=== PATIENT | male | born 1935 ===

== ENCOUNTER 2017-07-22 08:58 | Observation (INO) | payer OTHER ==
[2017-07-20 12:46] VITALS: BMI 19.7
[2017-07-22] MEDS ORDERED: Propofol 10 mg/ml Inj (20 ML) ONE (10:46)
[2017-07-22] MEDS ORDERED: Lidocaine 2% Inj (20ml) ONE (11:16)
--- NOTE | 2017-07-22 11:48 | CP.SDSHP ---
Same Day Surgery H & P - History Proposed Procedure: CT guided right lung mass biopsy Pre-Op Diagnosis: Right lung mass - Allergies Allergies: Allergies No Known Allergies Allergy (Verified 09/04/15 18:09) - Physical Exam Mental Status: Alert & Oriented x3 Neuro: WNL Heart: WNL Lungs: WNL - Impression Impression: pt with right lung mass referred for CT guided biopsy. Plan CT guided biopsy. Informed consent obtained and risk of PTX requiring chest tube explained to Pt and son. Pt. Evaluated Today:Candidate for Anesthesia & Procedure: Yes (ASA 3 Malampati 2) - Date & Time Date: 07/22/17 Time: 11:10 Short Stay Discharge - Short Stay Discharge Admitting Diagnosis/Reason for Visit: CT GUIDED LUNG BIOPSY Disposition: HOME/ ROUTINE
--- NOTE | 2017-07-22 11:49 | PCM.SURG1 ---
Surgeon's Initial Post Op Note - Surgeon's Notes Surgeon: Artem Tucker MD Straw Hat Brusher: NONE Type of Anesthesia: IV Sedation Pre-Operative Diagnosis: Right lung mass Operative Findings: CT showed a right lung peripheral consolidation measuring 3 cm with hazy borders. Post-Operative Diagnosis: Right lung mass Operation Performed: CT guided right lung mass biopsy Specimen/Specimens Removed: 20 g x 3 Estimated Blood Loss: EBL {In ML}: 0 Blood Products Given: N/A Drains Used: No Drains Post-Op Condition: Fair Date of Surgery/Procedure: 07/22/17 Time of Surgery/Procedure: 11:35
--- NOTE | 2017-07-22 11:54 | CT ---
PROCEDURE: Date of procedure: Procedure: 1. CT-guided lung mass biopsy, CPT [address] Guidance for biopsy, [address] Medications: The patient was sedated by anesthesiologist along with physiologic monitoring. HISTORY: Right upper lobe lung nodule TECHNIQUE: Following informed consent, the Pt's chest was marked. The Pt was placed prone on the CT table and procedure time out was performed. A noncontrast CT scan was performed. Noncontrast CT scan confirmed the presence of a peripheral 2.5cm area of consolidation. A skin localizer was placed on the patient's right chest and a repeat CT scan was performed. The skin was marked, prepped, and draped in the usual sterile fashion. After the skin was anesthetized with lidocaine and the patient sedated by the anesthesiologist, a 20 gauge core needle was advanced percutaneously under direct CT guidance into the mass. The patient developed pneumothorax and subcutaneous emphysema. A 2nd 20 gauge needle was then advanced under CT guidance into the mass. Upon confirmation of needle position, two 20-gauge core specimens were obtained and sent for routine pathology. The pneumothorax was aspirated. The needle was removed and a xeroform dressing was applied. A post biopsy CT scan showed decreased size of the pneumothorax measuring less than 10 percent. Large subcutaneous emphysema is present. IMPRESSION: CT guided core biopsy right lung nodule. A small pneumothorax is present following biopsy along with a a right subcutaneous emphysema. Patient also saturations 98 percent on 1 liter. Planned repeat chest x-ray in 1 hour.
--- NOTE | 2017-07-22 13:53 | RAD ---
PROCEDURE: CHEST RADIOGRAPH, 1 VIEW HISTORY: Status post right lung biopsy COMPARISON: None available. FINDINGS: LUNGS: Patchy opacity in the right midlung consistent with known lung mass. PLEURA: Increased size of right pneumothorax now approximately 20 percent. CARDIOVASCULAR: Normal. OSSEOUS STRUCTURES: No significant abnormalities. VISUALIZED UPPER ABDOMEN: Normal. OTHER FINDINGS: Significant subcutaneous emphysema extending from the lower chest into the neck. IMPRESSION: Increased size of right pneumothorax. Increased subcutaneous emphysema.
--- NOTE | 2017-07-22 13:56 | CT ---
PROCEDURE: Date of procedure: 07/22/2017 Procedure: 1. Placement of a right chest tube CT Guidance Medications: 8cc 1 percent lidocaine, HISTORY: Expanding Right pneumothorax TECHNIQUE: Following informed consent and procedure time-out, the patient's right chest was marked, prepped and draped in the usual sterile fashion. Noncontrast CT was performed. Noncontrast disease showed increased size of pneumothorax compared to post biopsy CT scan. After the skin was anesthetized with 1% lidocaine, a [place] catheter was advanced under ultrasound guidance into the pleural space. The catheter was exchanged over an 035 guidewire and tract was dilated to accommodate a 8 [place] pigtail catheter formed within the pleural space. The catheter was attached to a Pleur-Evac and attached to wall suction. A repeat CT scan showed no residual pneumothorax. The catheter was secured to patient's skin. A dressing applied. IMPRESSION: Placement of an 8 [place] right pigtail catheter for pneumothorax. There were no immediate complications.
[2017-07-22] MEDS: Albuterol-Ipratrop 3 mg / 0.5 (3 ml) UD INH SCH ×2 (14:30→20:21)
[2017-07-22] MEDS: HYDROmorphone 0.5 mg/0.5 ml ISec IVP PRN ×2 (15:19→21:29)
--- NOTE | 2017-07-22 17:33 | CP.PCM.CON ---
History of Present Illness - History of Present Illness History of Present Illness: Patient is an 81 y.o M with PMH of COPD, GERD and influenza currently on Tamiflu who underwent CT guided lung nodule biopsy. Post biopsy, patient developed small right-sided pneumothorax and subcutaneous emphysema. S/P 8 Nepali pigtail catheter for pneumothorax. Patient is currently complaining of severe right sided chest pain as well as right neck pain. Patient denies any shortness of breath. Patient has no other complaints. Patient has extensive smoking history and quit 10 years ago. He has had chronic non-productive cough for several years. PMD: Dr. Megan Vazquez Medications: Prilosec, Vitamin D, Iron tablets Surgical Hx: Bronchoscopy for foreign body removal in [facility] on 07/13/15; 3 hernia repairs (2008, 1997, ) Social Hx: former smoker for 30+ years, quit in 2005, lives with son, denies illicit drug use Allergies: no known allergies Assessment and Plan: Patient is an 81 y.o M with PMH of COPD, GERD and recent URI (finished treatment course yesterday) who underwent CT guided lung nodule biopsy. Post biopsy, patient developed small right-sided pneumothorax and subcutaneous emphysema. S/P 8 Nepali pigtail catheter for pneumothorax. -Duoneb treatment -Dilaudid for pain control -Follow up biopsy results -Tamiflu -Monitor vitals -Afebrile -Chest tube care Past Patient History - Infectious Disease Hx of Infectious Diseases: None - Past Medical History & Family History Past Medical History?: Yes - Past Social History Smoking Status: Former Smoker - CARDIAC Hx Cardiac Disorders: No - PULMONARY Other/Comment: BRONCOSCOPY - NEUROLOGICAL Hx Neurological Disorder: No - HEENT Hx HEENT Problems: No - RENAL Hx Chronic Kidney Disease: No - ENDOCRINE/METABOLIC Hx Endocrine Disorders: No - HEMATOLOGICAL/ONCOLOGICAL Hx Blood Disorders: No - INTEGUMENTARY Hx Dermatological Problems: No - MUSCULOSKELETAL/RHEUMATOLOGICAL Hx Musculoskeletal Disorders: No - GASTROINTESTINAL Hx Gastrointestinal Disorders: No - GENITOURINARY/GYNECOLOGICAL Hx Genitourinary Disorders: No - PSYCHIATRIC Hx Psychophysiologic Disorder: No Hx Substance Use: No - SURGICAL HISTORY Hx Surgeries: No - ANESTHESIA Hx Anesthesia: Yes Hx Anesthesia Reactions: No Hx Malignant Hyperthermia: No Has any member of the family had a problem w/ anesthesia?: No Meds Allergies/Adverse Reactions: Allergies Allergy/AdvReac Type Severity Reaction Status Date / Time No Known Allergies Allergy Verified 09/04/15 18:09 - Medications Medications: Current Medications Albuterol/Ipratropium (Duoneb 3 Mg/0.5 Mg (3 Ml) Ud) 3 ml INH RQ6 [facility] Last Admin: 07/22/17 14:30 Dose: 3 ml Heparin Sodium (Porcine) (Heparin) 5,000 units SC Q12 [facility] Hydromorphone HCl (Dilaudid) 0.5 mg IVP Q6H PRN PRN Reason: Pain, moderate (4-7) Last Admin: 07/22/17 15:19 Dose: 0.5 mg Oseltamivir Phosphate (Tamiflu Cap) 75 mg PO DAILY [facility] Pantoprazole Sodium (Protonix Ec Tab) 40 mg PO DAILY [facility] Results - Vital Signs Recent Vital Signs: Last Vital Signs Temp 97.3 F L 07/22/17 13:45 Pulse 89 07/22/17 14:30 Resp 24 07/22/17 14:30 BP 152/74 H 07/22/17 14:30 Pulse Ox 100 07/22/17 14:30
[2017-07-22] MEDS ORDERED: Albuterol HFA 90 mcg/actuation (8 g) IH PRN (18:59)
--- NOTE | 2017-07-22 19:23 | CP.PCM.HP ---
Past Patient History - Infectious Disease Hx of Infectious Diseases: None - Past Medical History & Family History Past Medical History?: Yes - Past Social History Smoking Status: Former Smoker - CARDIAC Hx Cardiac Disorders: No - PULMONARY Other/Comment: BRONCOSCOPY - NEUROLOGICAL Hx Neurological Disorder: No - HEENT Hx HEENT Problems: No - RENAL Hx Chronic Kidney Disease: No - ENDOCRINE/METABOLIC Hx Endocrine Disorders: No - HEMATOLOGICAL/ONCOLOGICAL Hx Blood Disorders: No - INTEGUMENTARY Hx Dermatological Problems: No - MUSCULOSKELETAL/RHEUMATOLOGICAL Hx Musculoskeletal Disorders: No - GASTROINTESTINAL Hx Gastrointestinal Disorders: No - GENITOURINARY/GYNECOLOGICAL Hx Genitourinary Disorders: No - PSYCHIATRIC Hx Psychophysiologic Disorder: No Hx Substance Use: No - SURGICAL HISTORY Hx Surgeries: No - ANESTHESIA Hx Anesthesia: Yes Hx Anesthesia Reactions: No Hx Malignant Hyperthermia: No Has any member of the family had a problem w/ anesthesia?: No Meds Allergies/Adverse Reactions: Allergies Allergy/AdvReac Type Severity Reaction Status Date / Time No Known Allergies Allergy Verified 09/04/15 18:09 Results - Vital Signs Recent Vital Signs: Last Vital Signs Temp 98.5 F 07/22/17 17:00 Pulse 91 H 07/22/17 17:00 Resp 20 07/22/17 17:00 BP 123/64 07/22/17 17:00 Pulse Ox 95 07/22/17 17:00
[2017-07-22 19:58] LABS: BASO % 0.1 % (0.0-2.0); EOS % 0.1 % (0.0-4.0); HEMOGLOBIN 10.3 g/dL (12.0-18.0); LYMPH # 1.2 K/uL (1.0-4.3); LYMPH % 7.3 % (20.0-40.0); MEAN CELL VOLUME 70.3 fL (80.0-94.0); MEAN CORPUSCULAR HGB CONC 31.3 g/dL (33.0-37.0); MEAN PLATELET VOLUME 7.5 fL (7.2-11.7); MONO # 0.7 K/uL (0.0-0.8); MONO % 4.5 % (0.0-10.0); NEUT # 14.5 K/uL (1.8-7.0); PLATELET COUNT 480 K/uL (130-400); RBC 4.69 Mil/uL (4.40-5.90); RED CELL DISTRIBUTION WIDTH 20.1 % (11.5-14.5); WHITE BLOOD COUNT 16.5 K/uL (4.8-10.8)
[2017-07-22 20:14] LABS: ALB/GLOB RATIO 1.1 (1.0-2.1); ALBUMIN 3.6 g/dL (3.5-5.0); ALT/SGPT 15 U/L (21-72); AST/SGOT 23 U/L (17-59); BLOOD UREA NITROGEN 15 mg/dL (9-20); CALCIUM 8.9 mg/dl (8.6-10.4); GFR AFRICAN-AMERICAN > 60; GFR NON-AFRICAN AMERICAN > 60
[2017-07-22 22:01] LABS: LYMPHOCYTE 6 % (20-40); MONOCYTE 4 % (0-10); TOTAL CELLS COUNTED 100
[2017-07-22 22:02] LABS: BANDS 10 % (0-2); HYPOCHROMIC SLIGHT; NEUTROPHIL 80 % (50-75); OVALOCYTES SLIGHT; PLATELET ESTIMATE NORMAL (NORMAL)
[2017-07-22 22:03] LABS: HYPERSEGMENTATION PRESENT
[2017-07-22] MEDS: Benzocaine/Menthol (Cepacol) Lozenge MT PRN (22:59)
[2017-07-22] MEDS: Azithromycin 500mg/250ML NS 500 MG/250 ML BAG IVPB SCH (23:01)
[2017-07-23] MEDS: Albuterol-Ipratrop 3 mg / 0.5 (3 ml) UD INH SCH ×4 (01:24→19:44)
[2017-07-23] MEDS: HYDROmorphone 0.5 mg/0.5 ml ISec IVP PRN ×3 (03:44→17:47)
[2017-07-23] MEDS: Tiotropium 18 mcg Cap For Inhalation INH SCH (07:57)
[2017-07-23] MEDS: Benzocaine/Menthol (Cepacol) Lozenge MT PRN (08:00)
--- NOTE | 2017-07-23 08:52 | RAD ---
Chest x-ray single frontal view History: Pneumothorax. Comparison: 07/22/2017 Findings: Extensive subcutaneous air seen throughout the right jud thorax and flank soft tissues extending into the right arm. Right chest tube in place. Tiny right apical pneumothorax. Venous congestion. Consolidative changes at the right lung base medially. Right peritracheal consolidation. Degenerative changes spine and shoulders. Impression: Extensive subcutaneous air seen throughout the right jud thorax and flank soft tissues extending into the right arm. Right chest tube in place. Tiny right apical pneumothorax. Venous congestion. Consolidative changes at the right lung base medially. Right peritracheal consolidation.
[2017-07-23] MEDS: Pantoprazole 40 mg EC Tab PO SCH (09:30)
[2017-07-23] MEDS ORDERED: Pneumococcal 23-Valent Vaccine IM ONE (10:00)
--- NOTE | 2017-07-23 13:54 | PCM.IRP ---
History of Present Illness - History of Present Illness History of Present Illness: Pt with post lung biopsy PTX s/p pigtail drainage catheter. CXR reviewed and shows small persistent PTX. Plan chest tube removal once the PTX is completely resolved. Objective - Vital Signs/Intake and Output Vital Signs (last 24 hours): Vital Signs - 24 hr 07/22/17 07/22/17 07/22/17 14:00 14:15 14:30 Temperature Pulse Rate 96 H 95 H 89 Respiratory 23 21 24 Rate Blood Pressure 150/83 156/77 H 152/74 H O2 Sat by Pulse 100 100 100 Oximetry 07/22/17 07/22/17 07/22/17 15:30 16:30 17:00 Temperature 97.4 F L 98.5 F Pulse Rate 88 88 91 H Respiratory 33 H 17 20 Rate Blood Pressure 143/75 136/64 123/64 O2 Sat by Pulse 100 96 95 Oximetry 07/22/17 07/22/17 07/22/17 21:00 21:15 23:25 Temperature 98.1 F 98.4 F Pulse Rate 99 H 89 Respiratory 20 20 Rate Blood Pressure 126/67 128/59 L O2 Sat by Pulse 97 97 96 Oximetry 07/23/17 07/23/17 07/23/17 03:45 07:40 08:35 Temperature 97.4 F L 98.1 F Pulse Rate 79 91 H 96 H Respiratory 20 20 Rate Blood Pressure 135/72 114/67 O2 Sat by Pulse 95 95 Oximetry Intake and Output (last 12 hours): Intake & Output 07/22/17 07/23/17 07/23/17 18:59 06:59 18:59 Intake Total 270 Output Total 450 Balance -180 Intake: Intake, IV Amount 150 Left Wrist 150 Oral 120 Output: Drainage 0 Right Chest 0 Urine 450 Urine, Voided 450 - Medications Medications: Current Medications Albuterol (Ventolin Hfa 90 Mcg/Actuation (8 G)) 2 puff IH RQ6 PRN PRN Reason: Shortness of Breath Albuterol/Ipratropium (Duoneb 3 Mg/0.5 Mg (3 Ml) Ud) 3 ml INH RQ6 [facility] Last Admin: 07/23/17 13:32 Dose: 3 ml Benzocaine/Menthol (Cepacol Sore Throat) 1 humberto MT Q6 PRN PRN Reason: Sore Throat Last Admin: 07/22/17 22:59 Dose: 1 humberto Ferrous Sulfate (Feosol) 325 mg PO DAILY [facility] Last Admin: 07/23/17 09:31 Dose: 325 mg Heparin Sodium (Porcine) (Heparin) 5,000 units SC Q12 [facility] Last Admin: 07/23/17 09:31 Dose: 5,000 units Hydromorphone HCl (Dilaudid) 0.5 mg IVP Q6H PRN PRN Reason: Pain, moderate (4-7) Last Admin: 07/23/17 10:14 Dose: 0.5 mg Ceftriaxone Sodium 1 gm/ (Sodium Chloride) 100 mls @ 100 mls/hr IVPB DAILY [facility] Last Admin: 07/22/17 22:59 Dose: 100 mls/hr Azithromycin (Zithromax 500mg In Ns Addvantage) 500 mg in 250 mls @ 167 mls/hr IVPB Q24H [facility] Last Admin: 07/22/17 23:01 Dose: 167 mls/hr Oseltamivir Phosphate (Tamiflu Cap) 75 mg PO DAILY [facility] Last Admin: 07/23/17 09:31 Dose: 75 mg Pantoprazole Sodium (Protonix Ec Tab) 40 mg PO DAILY [facility] Last Admin: 07/23/17 09:30 Dose: 40 mg Tiotropium [place] (Spiriva) 18 mcg INH RQ24 [facility] Last Admin: 07/23/17 07:57 Dose: 18 mcg - Labs Labs (last 24 hours): Laboratory Results - last 24 hr 07/22/17 07/22/17 19:08 19:56 WBC 16.5 H D RBC 4.69 Hgb 10.3 L Hct 33.0 L MCV 70.3 L MCH 22.0 L MCHC 31.3 L RDW 20.1 H Plt Count 480 H MPV 7.5 Neut % (Auto) 88.0 H Lymph % (Auto) 7.3 L [place] % (Auto) 4.5 Eos % (Auto) 0.1 Baso % (Auto) 0.1 Neut # (Auto) 14.5 H Lymph # (Auto) 1.2 [place] # (Auto) 0.7 Eos # (Auto) 0.0 Baso # (Auto) 0.0 Neutrophils % (Manual) 80 H Band Neutrophils % 10 H Lymphocytes % (Manual) 6 L Monocytes % (Manual) 4 Hypersegmented Polys Present Platelet Estimate Normal Hypochromasia (manual) Slight Ovalocytes Slight Sodium 131 L Potassium 3.9 Chloride 93 L Carbon Dioxide 30 Anion Gap 12 BUN 15 Creatinine 0.7 L Est GFR ( Amer) > 60 Est GFR (Non-Af Amer) > 60 Random Glucose 125 H Calcium 8.9 Total Bilirubin 0.7 AST 23 ALT 15 L D Alkaline Phosphatase 63 Total Protein 7.0 Albumin 3.6 Globulin 3.3 Albumin/Globulin Ratio 1.1
--- NOTE | 2017-07-23 13:57 | RAD ---
HISTORY: OFF SUCTION DX: PNEUMOTHORAX COMPARISON: 07/23/2017 at 7:57 a.m. FINDINGS: LUNGS: No pulmonary infiltrate. Very small right apical pneumothorax as on prior examination of the same date. Extensive subcutaneous emphysema seen over the right lateral chest wall and circumferentially about the neck. . PLEURA: As above. No pleural effusion. Right pigtail pleural catheter noted. CARDIOVASCULAR: Normal. OSSEOUS STRUCTURES: No significant abnormalities. VISUALIZED UPPER ABDOMEN: Normal. OTHER FINDINGS: None. IMPRESSION: Very small right apical pneumothorax. Subcutaneous emphysema.
[2017-07-23] MEDS ORDERED: Aluminum Hydroxide/Magnesium Hydroxide Susp (30 mL) PO PRN (16:22)
--- NOTE | 2017-07-23 17:18 | CP.PCM.PN ---
Subjective - Date & Time of Evaluation Date of Evaluation: 07/23/17 Time of Evaluation: 15:00 - Subjective Subjective: pt clinically same Objective - Vital Signs/Intake and Output Vital Signs (last 24 hours): Temp Pulse Resp BP Pulse Ox 97.8 F 93 H 18 136/67 96 07/23/17 16:00 07/23/17 16:00 07/23/17 16:00 07/23/17 16:00 07/23/17 16:03 Intake and Output: 07/23/17 07/23/17 06:59 18:59 Intake Total 270 Output Total 450 Balance -180 - Medications Medications: Current Medications Al Hydrox/Mg Hydrox/Simethicone (Maalox 30 Ml) 30 ml PO Q6 PRN PRN Reason: Indigestion / Heartburn Albuterol (Ventolin Hfa 90 Mcg/Actuation (8 G)) 2 puff IH RQ6 PRN PRN Reason: Shortness of Breath Albuterol/Ipratropium (Duoneb 3 Mg/0.5 Mg (3 Ml) Ud) 3 ml INH RQ6 [facility] Last Admin: 07/23/17 13:32 Dose: 3 ml Benzocaine/Menthol (Cepacol Sore Throat) 1 humberto MT Q6 PRN PRN Reason: Sore Throat Last Admin: 07/23/17 08:00 Dose: 1 humberto Ferrous Sulfate (Feosol) 325 mg PO DAILY [facility] Last Admin: 07/23/17 09:31 Dose: 325 mg Heparin Sodium (Porcine) (Heparin) 5,000 units SC Q12 [facility] Last Admin: 07/23/17 09:31 Dose: 5,000 units Hydromorphone HCl (Dilaudid) 0.5 mg IVP Q6H PRN PRN Reason: Pain, moderate (4-7) Last Admin: 07/23/17 10:14 Dose: 0.5 mg Ceftriaxone Sodium 1 gm/ (Sodium Chloride) 100 mls @ 100 mls/hr IVPB DAILY [facility] Last Admin: 07/23/17 10:00 Dose: 100 mls/hr Azithromycin (Zithromax 500mg In Ns Addvantage) 500 mg in 250 mls @ 167 mls/hr IVPB Q24H [facility] Last Admin: 07/22/17 23:01 Dose: 167 mls/hr Oseltamivir Phosphate (Tamiflu Cap) 75 mg PO DAILY [facility] Last Admin: 07/23/17 09:31 Dose: 75 mg Pantoprazole Sodium (Protonix Ec Tab) 40 mg PO DAILY [facility] Last Admin: 07/23/17 09:30 Dose: 40 mg Tiotropium [place] (Spiriva) 18 mcg INH RQ24 [facility] Last Admin: 07/23/17 07:57 Dose: 18 mcg - Labs Labs: 07/22/17 19:08 07/22/17 19:56 - Constitutional Appears: No Acute Distress - Head Exam Head Exam: ATRAUMATIC, NORMAL INSPECTION, NORMOCEPHALIC - Eye Exam Eye Exam: EOMI, Normal appearance, PERRL Pupil Exam: NORMAL ACCOMODATION, PERRL - ENT Exam ENT Exam: Mucous Membranes Moist - Neck Exam Neck Exam: Full ROM - Respiratory Exam Respiratory Exam: Decreased Breath Sounds - Cardiovascular Exam Cardiovascular Exam: REGULAR RHYTHM, +S1, +S2 - GI/Abdominal Exam GI & Abdominal Exam: Soft, Diminished Bowel Sounds - Rectal Exam Rectal Exam: Deferred - Neurological Exam 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
--- NOTE | 2017-07-23 19:41 | CP.PCM.PN ---
Subjective - Date & Time of Evaluation Date of Evaluation: 07/23/17 Time of Evaluation: 12:25 - Subjective Subjective: Patient was seen and evaluated. He continues to complain of right sided chest pain, for which Dilaudid provides relief. He denies any shortness of breath or cough. Assessment and Plan: Patient is an 81 y.o M with PMH of COPD, GERD and recent URI (finished treatment course yesterday) who underwent CT guided lung nodule biopsy. Post biopsy, patient developed small right-sided pneumothorax and subcutaneous emphysema. S/P 8 [place] pigtail catheter for pneumothorax. -Keep off suction for 1 hour and Repeat CXR -CXR on 07/23 showed extensive subcutaneous air throughout the right jud thorax and flank soft tissues extending into the right arm, tiny right apical pneumothorax, venous congestion, consolidative changes at the right lung base medially, right peritracheal consolidation -Duoneb treatments -Dilaudid for pain control -Follow up biopsy results -Tamiflu -Monitor vitals -Afebrile -Chest tube care -WBC 16.5, IV abx Objective - Vital Signs/Intake and Output Vital Signs (last 24 hours): Temp Pulse Resp BP Pulse Ox 97.8 F 93 H 18 136/67 96 07/23/17 16:00 07/23/17 16:00 07/23/17 16:00 07/23/17 16:00 07/23/17 16:03 - Medications Medications: Current Medications Al Hydrox/Mg Hydrox/Simethicone (Maalox 30 Ml) 30 ml PO Q6 PRN PRN Reason: Indigestion / Heartburn Last Admin: 07/23/17 17:30 Dose: 30 ml Albuterol (Ventolin Hfa 90 Mcg/Actuation (8 G)) 2 puff IH RQ6 PRN PRN Reason: Shortness of Breath Albuterol/Ipratropium (Duoneb 3 Mg/0.5 Mg (3 Ml) Ud) 3 ml INH RQ6 [facility] Last Admin: 07/23/17 13:32 Dose: 3 ml Benzocaine/Menthol (Cepacol Sore Throat) 1 humberto MT Q6 PRN PRN Reason: Sore Throat Last Admin: 07/23/17 08:00 Dose: 1 humberto Ferrous Sulfate (Feosol) 325 mg PO DAILY [facility] Last Admin: 07/23/17 09:31 Dose: 325 mg Heparin Sodium (Porcine) (Heparin) 5,000 units SC Q12 [facility] Last Admin: 07/23/17 09:31 Dose: 5,000 units Hydromorphone HCl (Dilaudid) 0.5 mg IVP Q6H PRN PRN Reason: Pain, moderate (4-7) Last Admin: 07/23/17 17:47 Dose: 0.5 mg Ceftriaxone Sodium 1 gm/ (Sodium Chloride) 100 mls @ 100 mls/hr IVPB DAILY [facility] Last Admin: 07/23/17 10:00 Dose: 100 mls/hr Azithromycin (Zithromax 500mg In Ns Addvantage) 500 mg in 250 mls @ 167 mls/hr IVPB Q24H [facility] Last Admin: 07/22/17 23:01 Dose: 167 mls/hr Oseltamivir Phosphate (Tamiflu Cap) 75 mg PO DAILY [facility] Last Admin: 07/23/17 09:31 Dose: 75 mg Pantoprazole Sodium (Protonix Ec Tab) 40 mg PO DAILY [facility] Last Admin: 07/23/17 09:30 Dose: 40 mg Tiotropium [place] (Spiriva) 18 mcg INH RQ24 [facility] Last Admin: 07/23/17 07:57 Dose: 18 mcg - Labs Labs: 07/22/17 19:08 07/22/17 19:56
[2017-07-23] MEDS: Azithromycin 500mg/250ML NS 500 MG/250 ML BAG IVPB SCH (21:54)
[2017-07-24 01:13] VITALS: RESP 20
[2017-07-24] MEDS: HYDROmorphone 0.5 mg/0.5 ml ISec IVP PRN (04:40)
[2017-07-24 05:34] VITALS: BP 129/66; PULSE 93; TEMP 98.2; O2SAT 94
[2017-07-24 08:10] LABS: BASO % 0.2 % (0.0-2.0); EOS % 0.5 % (0.0-4.0); HEMOGLOBIN 9.8 g/dL (12.0-18.0); LYMPH # 2.3 K/uL (1.0-4.3); LYMPH % 22.8 % (20.0-40.0); MEAN CELL VOLUME 71.9 fL (80.0-94.0); MEAN CORPUSCULAR HEMOGLOBIN 23.4 pg (27.0-31.0); MEAN CORPUSCULAR HGB CONC 32.6 g/dL (33.0-37.0); MONO # 0.6 K/uL (0.0-0.8); MONO % 5.8 % (0.0-10.0); NEUT # 7.1 K/uL (1.8-7.0); NEUT % 70.7 % (50.0-75.0); RBC 4.2 Mil/uL (4.40-5.90); RED CELL DISTRIBUTION WIDTH 23.7 % (11.5-14.5); WHITE BLOOD COUNT 10.1 K/uL (4.8-10.8)
[2017-07-24] MEDS: Tiotropium 18 mcg Cap For Inhalation INH SCH (08:14)
[2017-07-24] MEDS: Albuterol-Ipratrop 3 mg / 0.5 (3 ml) UD INH SCH ×2 (08:14→13:10)
[2017-07-24 08:28] LABS: BLOOD UREA NITROGEN 11 mg/dL (9-20); CALCIUM 8.3 mg/dl (8.6-10.4); GFR AFRICAN-AMERICAN > 60; GFR NON-AFRICAN AMERICAN > 60
[2017-07-24] MEDS: Pantoprazole 40 mg EC Tab PO SCH (09:04)
[2017-07-24] MEDS: Benzocaine/Menthol (Cepacol) Lozenge MT PRN (09:04)
--- NOTE | 2017-07-24 12:00 | RAD ---
HISTORY: s/p pneumothorax COMPARISON: 07/23/2017 FINDINGS: LUNGS: There is right basilar opacity noted. Increasing opacity is seen adjacent to the right pleural pigtail catheter at the lung base. There is new opacity at the medial right lung base. Possible pneumonia. PLEURA: No pneumothorax. Right pleural pigtail catheter. No evidence of pleural effusion. There is extensive subcutaneous emphysema seen over the right lateral chest and abdominal wall and extending circumferentially about the neck. This is grossly unchanged in extent from the prior examination. CARDIOVASCULAR: Normal. OSSEOUS STRUCTURES: No significant abnormalities. VISUALIZED UPPER ABDOMEN: Normal. OTHER FINDINGS: None. IMPRESSION: Right pleural pigtail catheter. No pneumothorax. Right basilar pulmonary opacity, possible pneumonia.
--- NOTE | 2017-07-24 13:23 | CP.PCM.PN ---
Subjective - Date & Time of Evaluation Date of Evaluation: 07/24/17 Time of Evaluation: 09:45 - Subjective Subjective: patient seen and examined Lying comfortably in no acute distress Repeat chest x-ray showed reexpansion of lung Still has rescue with no air leak DC chest tube Continue present treatment Objective - Vital Signs/Intake and Output Vital Signs (last 24 hours): Temp Pulse Resp BP Pulse Ox 98.2 F 93 H 20 129/66 94 L 07/24/17 04:00 07/24/17 04:00 07/24/17 04:00 07/24/17 04:00 07/24/17 04:00 Intake and Output: 07/24/17 07/24/17 06:59 18:59 Output Total 300 Balance -300 - Medications Medications: Current Medications Al Hydrox/Mg Hydrox/Simethicone (Maalox 30 Ml) 30 ml PO Q6 PRN PRN Reason: Indigestion / Heartburn Last Admin: 07/23/17 17:30 Dose: 30 ml Albuterol (Ventolin Hfa 90 Mcg/Actuation (8 G)) 2 puff IH RQ6 PRN PRN Reason: Shortness of Breath Albuterol/Ipratropium (Duoneb 3 Mg/0.5 Mg (3 Ml) Ud) 3 ml INH RQ6 [facility] Last Admin: 07/24/17 13:10 Dose: 3 ml Benzocaine/Menthol (Cepacol Sore Throat) 1 humberto MT Q6 PRN PRN Reason: Sore Throat Last Admin: 07/24/17 09:04 Dose: 1 humberto Ferrous Sulfate (Feosol) 325 mg PO DAILY [facility] Last Admin: 07/24/17 09:04 Dose: 325 mg Heparin Sodium (Porcine) (Heparin) 5,000 units SC Q12 [facility] Last Admin: 07/24/17 09:04 Dose: 5,000 units Hydromorphone HCl (Dilaudid) 0.5 mg IVP Q6H PRN PRN Reason: Pain, moderate (4-7) Last Admin: 07/24/17 04:40 Dose: 0.5 mg Ceftriaxone Sodium 1 gm/ (Sodium Chloride) 100 mls @ 100 mls/hr IVPB DAILY [facility] Last Admin: 07/24/17 10:00 Dose: 100 mls/hr Azithromycin (Zithromax 500mg In Ns Addvantage) 500 mg in 250 mls @ 167 mls/hr IVPB Q24H [facility] Last Admin: 07/23/17 21:54 Dose: 167 mls/hr Oseltamivir Phosphate (Tamiflu Cap) 75 mg PO DAILY [facility] Last Admin: 07/24/17 09:05 Dose: 75 mg Pantoprazole Sodium (Protonix Ec Tab) 40 mg PO DAILY [facility] Last Admin: 07/24/17 09:04 Dose: 40 mg Tiotropium [place] (Spiriva) 18 mcg INH RQ24 [facility] Last Admin: 07/24/17 08:14 Dose: Not Given - Labs Labs: 07/24/17 07:58 07/24/17 07:58
--- NOTE | 2017-07-24 15:08 | CP.PCM.PN ---
Subjective - Date & Time of Evaluation Date of Evaluation: 07/24/17 Time of Evaluation: 11:00 - Subjective Subjective: Patient seen today , awake, alert, ox3, deneis any sob, chest pain, dizziness, palpitation, c/o occasional non productive cough s/p pigtail cath after biopsy for pneumothaorax Objective - Vital Signs/Intake and Output Vital Signs (last 24 hours): Temp Pulse Resp BP Pulse Ox 98.2 F 93 H 20 129/66 94 L 07/24/17 04:00 07/24/17 04:00 07/24/17 04:00 07/24/17 04:00 07/24/17 04:00 Intake and Output: 07/24/17 07/24/17 06:59 18:59 Output Total 300 Balance -300 - Medications Medications: Current Medications Al Hydrox/Mg Hydrox/Simethicone (Maalox 30 Ml) 30 ml PO Q6 PRN PRN Reason: Indigestion / Heartburn Last Admin: 07/23/17 17:30 Dose: 30 ml Albuterol (Ventolin Hfa 90 Mcg/Actuation (8 G)) 2 puff IH RQ6 PRN PRN Reason: Shortness of Breath Albuterol/Ipratropium (Duoneb 3 Mg/0.5 Mg (3 Ml) Ud) 3 ml INH RQ6 [facility] Last Admin: 07/24/17 13:10 Dose: 3 ml Benzocaine/Menthol (Cepacol Sore Throat) 1 humberto MT Q6 PRN PRN Reason: Sore Throat Last Admin: 07/24/17 09:04 Dose: 1 humberto Ferrous Sulfate (Feosol) 325 mg PO DAILY [facility] Last Admin: 07/24/17 09:04 Dose: 325 mg Heparin Sodium (Porcine) (Heparin) 5,000 units SC Q12 [facility] Last Admin: 07/24/17 09:04 Dose: 5,000 units Hydromorphone HCl (Dilaudid) 0.5 mg IVP Q6H PRN PRN Reason: Pain, moderate (4-7) Last Admin: 07/24/17 04:40 Dose: 0.5 mg Ceftriaxone Sodium 1 gm/ (Sodium Chloride) 100 mls @ 100 mls/hr IVPB DAILY [facility] Last Admin: 07/24/17 10:00 Dose: 100 mls/hr Azithromycin (Zithromax 500mg In Ns Addvantage) 500 mg in 250 mls @ 167 mls/hr IVPB Q24H [facility] Last Admin: 07/23/17 21:54 Dose: 167 mls/hr Oseltamivir Phosphate (Tamiflu Cap) 75 mg PO DAILY [facility] Last Admin: 07/24/17 09:05 Dose: 75 mg Pantoprazole Sodium (Protonix Ec Tab) 40 mg PO DAILY [facility] Last Admin: 07/24/17 09:04 Dose: 40 mg Tiotropium [place] (Spiriva) 18 mcg INH RQ24 [facility] Last Admin: 07/24/17 08:14 Dose: Not Given - Labs Labs: 07/24/17 07:58 07/24/17 07:58
== END 2017-07-24 16:12 | disposition home or self-care (01) ==
LOC: C.SPRAD 08:58 → C.9S 13:41 → C.6T 15:01
PROVIDERS: ADMIT Internal Medicine Nephrology; ATTEND Internal Medicine Nephrology
DX: C34.91 Malignant neoplasm of unspecified part of right bronchus or lung (principal); Z87.891 Personal history of nicotine dependence; K21.9 Gastro-esophageal reflux disease without esophagitis; T79.7XXA Traumatic subcutaneous emphysema, initial encounter; J93.9 Pneumothorax, unspecified; M25.50 Pain in unspecified joint; M19.90 Unspecified osteoarthritis, unspecified site; J40 Bronchitis, not specified as acute or chronic; A31.0 Pulmonary mycobacterial infection; J15.8 Pneumonia due to other specified bacteria; J44.0 Chronic obstructive pulmonary disease with (acute) lower respiratory infection; J47.0 Bronchiectasis with acute lower respiratory infection; I87.8 Other specified disorders of veins
CPT/HCPCS: 32405; 32555; 36415; 71045; 77012; 80048; 80053; 85025; 88305; 94640; C1729; G0378; J0456; J0696; J1170; J1644; J2704